=== PATIENT | male | born 1995 | race Caucasian/White ===

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

== ENCOUNTER 2017-07-12 11:23 | Emergency (ER) | payer SELFPAY ==
[~2017-07-12] VITALS: Ht 182.9 cm; Wt 81.8 kg
[~2017-07-12 11:23] MED LIST: EFFEXOR-XR150 MG PO; ZOVIRAX 200MG200 MG PO
[2017-07-12 11:26] VITALS: BP 132/88
[2017-07-12] MEDS ORDERED: CATAPRES0.2 MG PO (11:39)
[2017-07-12] MEDS ORDERED: BUSPAR10 MG PO (11:39)
[2017-07-12] MEDS ORDERED: MONODOX100 PO (12:05)
[2017-07-12 12:36] VITALS: PULSE 102; TEMP 98.9
[2017-07-12] MEDS ORDERED: NORCO 325 MG-51 TAB PO (13:14)
== END 2017-07-12 12:31 | disposition home or self-care (01) ==
LOC: COL.ER 11:23
DX: S61.451A Open bite of right hand, initial encounter (principal); S61.212A Laceration without foreign body of right middle finger without damage to nail, initial encounter; L03.113 Cellulitis of right upper limb; F41.9 Anxiety disorder, unspecified; F32.9 Major depressive disorder, single episode, unspecified; W54.0XXA Bitten by dog, initial encounter
CPT/HCPCS: J0696

== ENCOUNTER 2017-07-13 13:26 | Emergency (ER) | payer SELFPAY ==
[~2017-07-13] VITALS: Ht 182.9 cm; Wt 86.4 kg
[~2017-07-13 13:26] MED LIST changes: +BUSPAR10 MG PO; +CATAPRES0.2 MG PO; +MONODOX100 PO; +NORCO 325 MG-51 TAB PO
[2017-07-13 13:31] VITALS: BP 134/77; TEMP 98.5
[2017-07-13 14:50] VITALS: PULSE 91
== END 2017-07-13 14:51 | disposition home or self-care (01) ==
LOC: COL.ER 13:26
DX: S61.451D Open bite of right hand, subsequent encounter (principal); W54.0XXD Bitten by dog, subsequent encounter

== ENCOUNTER 2018-01-15 16:19 | Emergency (ER) | payer OTHER ==
[2018-01-15 16:33] VITALS: BP 132/67; TEMP 98
[2018-01-15 17:42] VITALS: PULSE 95
== END 2018-01-15 17:43 | disposition home or self-care (01) ==
LOC: COL.ER 16:19
DX: S06.0X0A Concussion without loss of consciousness, initial encounter (principal); S16.1XXA Strain of muscle, fascia and tendon at neck level, initial encounter; V43.52XA Car driver injured in collision with other type car in traffic accident, initial encounter; F32.9 Major depressive disorder, single episode, unspecified

== ENCOUNTER 2018-04-27 00:19 | Emergency (ER) | payer SELFPAY ==
[~2018-04-27] VITALS: Ht 182.9 cm; Wt 81.8 kg
[2018-04-27 00:24] VITALS: TEMP 97.8
[2018-04-27 01:03] LABS: BASO % 0.3 % (0.0-2.0); EOS % 0.1 % (0-4.0); GRAN # 3.8 (1.4-6.5); GRAN % 55.3 % (42.2-75.2); HEMATOCRIT 50.3 % (42.0-52.0); HEMOGLOBIN 18.3 g/dl (13.5-18.0); LYMPH # 2.6 (1.2-3.4); LYMPH % 37.2 % (20.0-51.0); MEAN CELL VOLUME 85 fl (80.0-100.0); MEAN CORPUSCULAR HEMOGLOBIN 31 pg (27.0-31.0); MEAN CORPUSCULAR HGB CONC 36 g/dl (33.0-37.0); MONO # 0.5 (0.1-0.6); MONO % 6.7 % (1.7-9.3); PLATELET COUNT 304 K/mm3 (130-400); REDCELL DISTRIBUTION WIDTH-CV 12.6 % (11.5-14.5)
[2018-04-27 01:14] LABS: ALANINE AMINOTRANSFERASE 18 U/L (21-72); ALBUMIN 4.8 gm/dL (3.5-5.0); ALCOHOL(ethanol),MEDICAL 152 mg/dL; ALKALINE PHOSPHATASE 112 U/L (50-136); ANION GAP 15 mmol/L (7-16); AST,SGOT 23 U/L (15-37); BILIRUBIN,TOTAL 0.4 mg/dL (0.0-1.0); BLOOD UREA NITROGEN 11 mg/dL (9-20); CALCIUM 9.1 mg/dL (8.4-10.2); CARBON DIOXIDE 23 mmol/L (22-30); CHLORIDE 106 mmol/L (98-107); CREATININE, serum 0.63 mg/dL (0.66-1.25); GLUCOSE 105 mg/dL (74-106); POTASSIUM 3.8 mmol/L (3.4-5.0); SODIUM 144 mmol/L (137-145); TOTAL PROTEIN 7.5 gm/dL (6.4-8.2)
[2018-04-27 01:18] LABS: ACETAMINOPHEN < 10 ug/mL (10-30); SALICYLATE < 1.0 mg/dL
[2018-04-27 05:36] LABS: COLLECTION METHOD CLEAN CATCH
[2018-04-27 05:58] LABS: MUCOUS Present /lpf; PH 5 (5-8); SQUAMOUS EPITHELIAL None Seen /hpf; TRICYCLIC ANTIDEPRESS URINE NEGATIVE; URINE APPEARANCE Hazy; URINE BACTERIA None Seen /hpf; URINE BILIRUBIN Negative (NEGATIVE); URINE BLOOD Negative (NEGATIVE); URINE COLOR Yellow; URINE GLUCOSE Negative (NEGATIVE); URINE KETONE Trace (NEGATIVE); URINE LEUKOCYTE ESTERASE Negative (NEGATIVE); URINE NITRATE Negative (NEGATIVE); URINE PROTEIN(semi-quant) 1+ (NEGATIVE); URINE RBC 0-2 /hpf
[2018-04-27 07:51] VITALS: BP 135/69; PULSE 89
== END 2018-04-27 07:55 | disposition home or self-care (01) ==
LOC: COL.ER 00:19
PROVIDERS: Emergency Medicine
DX: F32.9 Major depressive disorder, single episode, unspecified (principal); Y90.6 Blood alcohol level of 120-199 mg/100 ml; F10.129 Alcohol abuse with intoxication, unspecified; F17.210 Nicotine dependence, cigarettes, uncomplicated; F12.90 Cannabis use, unspecified, uncomplicated